=== PATIENT | male | born 1980 | race Caucasian/White ===

== ENCOUNTER 2018-04-24 05:34 | Observation (INO) | payer MEDICARE, MEDICAID ==
[2018-04-24] MEDS ORDERED: Aspirin 81 MG Tab.Chew ONE (05:44)
[2018-04-24] MEDS ORDERED: Aspirin 81 MG Tab.Chew PO ONE (05:55)
[2018-04-24 06:23] LABS: CHLORIDE,CL 106 mmol/L (98-107); SODIUM,NA 141 mmol/L (136-148)
[2018-04-24] MEDS ORDERED: Morphine 2 MG/ML Syringe IVPUSH ONE (06:26)
[2018-04-24] MEDS ORDERED: Morphine 2 MG/ML Syringe ONE (06:27)
--- NOTE | 2018-04-24 07:06 | EDM.PDOC ---
ED HPI GENERAL MEDICAL PROBLEM - General Chief Complaint: Cardiovascular Problem Stated Complaint: HEART BEATING FAST Time Seen by Provider: 04/24/18 07:00 - History of Present Illness INITIAL COMMENTS - FREE TEXT/NARRATIVE: HISTORY AND PHYSICAL: History of present illness: The patient is a 38-year-old male with a history of testicular cancer who is still undergoing observation for that at [facility] and has not had any chemotherapy for 2 years and has a history of need for aortic valve replacement and presents with complaints of waking at 445 this morning with pain to the right side of his sternum palpitation shortness of breath and nausea. Yesterday the patient had a complete normal day without fevers chills or upper respiratory symptoms and had no chest pain. The patient states he has never had this discomfort before. When he arrived to the ED has chest pain was a 1/10 and it is currently as 0/10. He took no medications prior to coming here. He has no leg pain or swelling no current shortness of breath abdominal pain nausea or diaphoresis. The patient does state he gets palpitations intermittently. The patient only follows with at [facility] and has not had an echocardiogram recently nor has he seen a aerial sprayer for his aortic valve murmur according to the mother.. The patient has been eating and drinking normally and has no history of chest discomfort with activity. Review of systems: As per history of present illness and below otherwise all systems reviewed and negative. Past medical history: As per history of present illness and as reviewed below otherwise noncontributory. Surgical history: As per history of present illness and as reviewed below otherwise noncontributory. Social history: No reported history of drug or alcohol abuse. Family history: As per history of present illness and as reviewed below otherwise noncontributory. Physical exam: General: Well-developed well-nourished man who is nontoxic and vital signs have been reviewed by me. Initially the patient was slightly tachycardic and hypertensive which have both resolved without intervention HEENT: Atraumatic, normocephalic, negative for conjunctival pallor or scleral icterus, mucous membranes moist, throat clear, neck supple, nontender, trachea midline. Lungs: Clear to auscultation, breath sounds equal bilaterally, chest nontender. Heart: S1S2, regular rate and rhythm without aortic valve murmur at the left sternal border. Abdomen: Soft, nondistended, nontender. Negative for masses or hepatosplenomegaly. NABS Pelvis: Stable nontender. Genitourinary: Deferred. Rectal: Deferred. Extremities: Atraumatic, negative for cords or calf pain. Neurovascular unremarkable. No pedal edema or leg asymmetry Neuro: Awake, alert, oriented. Cranial nerves II through XII unremarkable. Cerebellum unremarkable. Motor and sensory unremarkable throughout. Exam nonfocal. Diagnostics: EKG 2 CBC CMP INR troponin CTA of the chest Therapeutics: IV O2 monitor aspirin morphine Lovenox nitro paste 0800: Case was discussed with Dr. Hernandez who is agreeable to admit the patient as long as our aerial sprayer Dr. Arshad will be involved. I will call him and discuss the case. 08: Case was discussed with our aerial sprayer Dr. Arshad who will do a formal consult. He feels that the patient can remain here at our hospital and he would like a CTA of the chest to rule out PE. I will order that to be done from the ER and explain all of these conversations with the patient and mother at bedside. I will recontact Dr. Hernandez for admission. 0822: Case was rediscussed with Dr. Hernandez who accepts the patient to observation status on telemetry. He is aware that I will follow-up the CTA of the chest prior to transfer to the floor. 0920:CTA results have been reviewed by me and will be forwarded to the floor. Patient will be transferred to his bed assignment. 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 Chest Pain Score (Numeric/FACES): 1 - Related Data Allergies Allergy/AdvReac Type Severity Reaction Status Date / Time No Known Allergies Allergy Verified 04/24/18 05:46 Home Meds: Home Meds Metoprolol Tartrate 0 mg PO DAILY 04/24/18 [History] Past Medical History Cardiovascular History: Reports: Heart Murmur, Hypertension Oncologic (Cancer) History: Reports: Other (See Below) Other Oncologic History: testicular Social & Family History - Family History Family Medical History: Noncontributory - Tobacco Use Smoking Status *Q: Never Smoker - Recreational Drug Use Recreational Drug Use: No ED ROS GENERAL - Review of Systems Review Of Systems: ROS reveals no pertinent complaints other than HPI. ED EXAM, GENERAL - Physical Exam Exam: See Below (See dictation) Course - Vital Signs Last Recorded V/S: Last Vital Signs Temp 36.8 C 04/24/18 05:43 Pulse 99 04/24/18 08:15 Resp 18 04/24/18 08:15 BP 134/86 04/24/18 08:15 Pulse Ox 97 04/24/18 08:15 - Orders/Labs/Meds Orders: Active Orders 24 hr Category Date Time Status Cardiac Monitoring [RC] . DIRECTED Care 04/24/18 05:55 Active EKG Documentation Completion [RC] STAT Care 04/24/18 05:55 Active EKG Documentation Completion [RC] STAT Care 04/24/18 07:03 Active Notify Provider Consults [RC] ASDIRECTED Care 04/24/18 08:08 Active Consult to Physician [CONS] Stat Cons 04/24/18 08:08 Active Chest 1V Frontal [CR] Stat Exams 04/24/18 05:55 Taken Labs: Laboratory Tests 04/24/18 04/24/18 04/24/18 Range/Units 05:50 05:50 05:50 WBC 5.30 (4.0-11.0) K/uL RBC 5.31 (4.50-5.90) M/uL Hgb 15.7 (13.0-17.0) g/dL Hct 45.6 (38.0-50.0) % MCV 85.9 (80.0-98.0) fL MCH 29.6 (27.0-32.0) pg MCHC 34.4 (31.0-37.0) g/dL RDW Std Deviation 41.7 (28.0-62.0) fl RDW Coeff of Danna 13 (11.0-15.0) % Plt Count 107 L (150-400) K/uL MPV 10.50 (7.40-12.00) fL Neut % (Auto) 68.5 (48.0-80.0) % Lymph % (Auto) 23.0 (16.0-40.0) % [place] % (Auto) 7.4 (0.0-15.0) % Eos % (Auto) 0.9 (0.0-7.0) % Baso % (Auto) 0.2 (0.0-1.5) % Neut # (Auto) 3.6 (1.4-5.7) K/uL Lymph # (Auto) 1.2 (0.6-2.4) K/uL [place] # (Auto) 0.4 (0.0-0.8) K/uL Eos # (Auto) 0.1 (0.0-0.7) K/uL Baso # (Auto) 0.0 (0.0-0.1) K/uL Nucleated RBC % 0.0 /100WBC Nucleated RBCs # 0 K/uL INR 1.01 Sodium 141 (136-148) mmol/L Potassium 3.8 (3.5-5.1) mmol/L Chloride 106 (98-107) mmol/L Carbon Dioxide 23.7 (21.0-32.0) mmol/L BUN 18 (7.0-18.0) mg/dL Creatinine 1.2 (0.8-1.3) mg/dL Est Cr Clr Drug Dosing 82.65 mL/min Estimated GFR (MDRD) > 60.0 ml/min Glucose 115 H (74-106) mg/dL Calcium 8.6 (8.5-10.1) mg/dL Total Bilirubin 0.4 (0.2-1.0) mg/dL AST 23 (15-37) IU/L ALT 27 (14-63) IU/L Alkaline Phosphatase 72 (46-116) U/L Troponin I 0.074 H* (0.000-0.056) ng/mL Total Protein 6.8 (6.4-8.2) g/dL Albumin 4.0 (3.4-5.0) g/dL Globulin 2.8 (2.0-3.5) g/dL Albumin/Globulin Ratio 1.4 (1.3-2.8) 04/24/18 Range/Units 07:18 WBC (4.0-11.0) K/uL RBC (4.50-5.90) M/uL Hgb (13.0-17.0) g/dL Hct (38.0-50.0) % MCV (80.0-98.0) fL MCH (27.0-32.0) pg MCHC (31.0-37.0) g/dL RDW Std Deviation (28.0-62.0) fl RDW Coeff of Danna (11.0-15.0) % Plt Count (150-400) K/uL MPV (7.40-12.00) fL Neut % (Auto) (48.0-80.0) % Lymph % (Auto) (16.0-40.0) % [place] % (Auto) (0.0-15.0) % Eos % (Auto) (0.0-7.0) % Baso % (Auto) (0.0-1.5) % Neut # (Auto) (1.4-5.7) K/uL Lymph # (Auto) (0.6-2.4) K/uL [place] # (Auto) (0.0-0.8) K/uL Eos # (Auto) (0.0-0.7) K/uL Baso # (Auto) (0.0-0.1) K/uL Nucleated RBC % /100WBC Nucleated RBCs # K/uL INR Sodium (136-148) mmol/L Potassium (3.5-5.1) mmol/L Chloride (98-107) mmol/L Carbon Dioxide (21.0-32.0) mmol/L BUN (7.0-18.0) mg/dL Creatinine (0.8-1.3) mg/dL Est Cr Clr Drug Dosing mL/min Estimated GFR (MDRD) ml/min Glucose (74-106) mg/dL Calcium (8.5-10.1) mg/dL Total Bilirubin (0.2-1.0) mg/dL AST (15-37) IU/L ALT (14-63) IU/L Alkaline Phosphatase (46-116) U/L Troponin I 0.076 H* (0.000-0.056) ng/mL Total Protein (6.4-8.2) g/dL Albumin (3.4-5.0) g/dL Globulin (2.0-3.5) g/dL Albumin/Globulin Ratio (1.3-2.8) Meds: Medications Discontinued Medications Generic Name Dose Route Start Last Admin Trade Name Freq PRN Reason Stop Dose Admin Aspirin Confirm 04/24/18 05:44 04/24/18 05:57 Aspirin Administered 04/24/18 05:45 Not Given Dose 324 mg .ROUTE .STK-MED ONE Aspirin 324 mg 04/24/18 05:55 04/24/18 05:57 Aspirin PO 04/24/18 05:56 324 mg ONETIME ONE Administration Enoxaparin Sodium 100 mg 04/24/18 07:53 04/24/18 08:11 Lovenox SUBCUT 04/24/18 07:54 100 mg ONETIME ONE Administration Iopamidol 50 ml 04/24/18 08:30 04/24/18 08:34 Isovue Multipack-370 (76%) IVPUSH 04/24/18 08:31 50 ml ONETIME STA Administration Morphine Sulfate 2 mg 04/24/18 06:26 04/24/18 06:30 Morphine IVPUSH 04/24/18 06:27 2 mg ONETIME ONE Administration Morphine Sulfate Confirm 04/24/18 06:27 04/24/18 06:46 Morphine Administered 04/24/18 06:28 Not Given Dose 2 mg .ROUTE .STK-MED ONE Nitroglycerin 0.5 gm 04/24/18 07:53 04/24/18 08:11 Nitro-Bid 2% TOP 04/24/18 07:54 0.5 gm ONETIME ONE Administration Departure - Departure Time of Disposition: 09:21 Disposition: Refer to Observation Condition: Good Clinical Impression: Atypical chest pain, Elevated troponin - My Orders Last 24 Hours: My Active Orders 04/24/18 07:03 EKG Documentation Completion [RC] STAT 04/24/18 08:08 Notify Provider Consults [RC] ASDIRECTED Consult to Physician [CONS] Stat - Assessment/Plan Last 24 Hours: My Active Orders 04/24/18 07:03 EKG Documentation Completion [RC] STAT 04/24/18 08:08 Notify Provider Consults [RC] ASDIRECTED Consult to Physician [CONS] Stat
[2018-04-24] MEDS ORDERED: Nitroglycerin 2% Oint 1 GM UD Packet TOP ONE (07:53)
[2018-04-24] MEDS ORDERED: Enoxaparin 100 MG/1 ML Syringe SUBCUT ONE ×2 (07:53→20:44)
[2018-04-24] MEDS ORDERED: Iopamidol 755 MG/ML 500 ML Multipack Bottle IVPUSH STA (08:30)
--- NOTE | 2018-04-24 09:19 | CT ---
EXAMINATION: CTA chest HISTORY: Testicular cancer, right chest pain COMPARISON: 01/15/2018 TECHNIQUE: Axial CT images obtained through the chest following the administration of unspecified Iso addi-370 in the right antecubital fossa. Coronal and sagittal reconstructions obtained. FINDINGS: Trace bilateral pleural effusions. Possible patchy infiltrate within the lung bases, left g reater than right, however obscured secondary to motion artifact. Also possible. Slight interlobular septal thickening noted within the lung bases. No pneumothorax. The heart is normal in size without a pericardial effusion. The thoracic aorta is normal in caliber. Bovine arch configuration. The main p ulmonary arteries are patent. There is suboptimal opacification of the pulmonary arteries within the lung bases. No mediastinal or hilar lymphadenopathy. Left-sided phyllis catheter noted. No suspicious osseous abnormalities identified. IMPRESSION: 1. The main pulmonary arteries are patent however there is suboptimal evaluation of the segmental pul monary arteries due to motion and poor bolus timing. 2. Trace bilateral pleural effusions. 3. Possible mild infiltrate within the lung bases, left greater than right, however obscured secondar y to motion artifact. 4. Possible interlobular septal thickening within the lung bases, correlate for edema.
--- NOTE | 2018-04-24 10:56 | PCM.HP ---
H&P History of Present Illness - General Date of Service: 04/24/18 Admit Problem/Dx: Admission Diagnosis/Problem Admission Diagnosis/Problem Atypical chest pain - History of Present Illness Initial Comments - Free Text/Narative: 38 yo male who presents to the ED with complaints of palpitations and shortness of breath. It awoke him from sleeping this morning and lasted five minutes. He had some right upper chest pain associated with it. For the past month he reports getting palpitations about once a week usually during exertion like walking his dog. He states a history of murmer and he was told he needed to have his aortic valve replaced but this was deferred during treatment of his testicular cancer. His last chemotherapy was three years ago. Chest Pain Score (Numeric/FACES): 1 - Related Data Allergies/Adverse Reactions: Allergies Allergy/AdvReac Type Severity Reaction Status Date / Time No Known Allergies Allergy Verified 04/24/18 05:46 Home Medications: Home Meds Furosemide [Lasix] 20 mg PO DAILY #30 tablet 04/26/18 [Rx] Metoprolol Succinate [Toprol XL] 75 mg PO DAILY tab.er 04/26/18 [Rx] Past Medical History Cardiovascular History: Reports: Heart Murmur, Hypertension Musculoskeletal History: Reports: Fracture Oncologic (Cancer) History: Reports: Other (See Below) Other Oncologic History: testicular - Past Surgical History HEENT Surgical History: Reports: Tonsillectomy Musculoskeletal Surgical History: Reports: Other (See Below) Other Musculoskeletal Surgeries/Procedures:: surgery to right wrist, pins in place Social & Family History - Family History Family Medical History: Noncontributory - Tobacco Use Smoking Status *Q: Never Smoker - Caffeine Use Caffeine Use: Reports: None - Recreational Drug Use Recreational Drug Use: No H&P Review of Systems - Review of Systems: Review Of Systems: See Below Exam - Exam Exam: See Below - Vital Signs Vital Signs: Last Vital Signs Temp 36.5 C 04/24/18 09:41 Pulse 100 04/24/18 09:41 Resp 19 04/24/18 09:41 BP 143/89 H 04/24/18 09:41 Pulse Ox 95 04/24/18 09:41 Weight: 96.6 kg - Exam General: Alert, Oriented HEENT: Conjunctiva Clear Neck: Supple, Trachea Midline Lungs: Clear to Auscultation, Normal Respiratory Effort Cardiovascular: Regular Rate, Regular Rhythm, Systolic Murmur GI/Abdominal Exam: Soft, Non-Tender Extremities: Normal Range of Motion, Non-Tender, No Pedal Edema Skin: Warm, Dry, Intact - Patient Data Lab Results Last 24 hrs: Laboratory Results - last 24 hr 04/24/18 04/24/18 04/24/18 Range/Units 05:50 05:50 05:50 WBC 5.30 (4.0-11.0) K/uL RBC 5.31 (4.50-5.90) M/uL Hgb 15.7 (13.0-17.0) g/dL Hct 45.6 (38.0-50.0) % MCV 85.9 (80.0-98.0) fL MCH 29.6 (27.0-32.0) pg MCHC 34.4 (31.0-37.0) g/dL RDW Std Deviation 41.7 (28.0-62.0) fl RDW Coeff of Danna 13 (11.0-15.0) % Plt Count 107 L (150-400) K/uL MPV 10.50 (7.40-12.00) fL Neut % (Auto) 68.5 (48.0-80.0) % Lymph % (Auto) 23.0 (16.0-40.0) % [place] % (Auto) 7.4 (0.0-15.0) % Eos % (Auto) 0.9 (0.0-7.0) % Baso % (Auto) 0.2 (0.0-1.5) % Neut # (Auto) 3.6 (1.4-5.7) K/uL Lymph # (Auto) 1.2 (0.6-2.4) K/uL [place] # (Auto) 0.4 (0.0-0.8) K/uL Eos # (Auto) 0.1 (0.0-0.7) K/uL Baso # (Auto) 0.0 (0.0-0.1) K/uL Nucleated RBC % 0.0 /100WBC Nucleated RBCs # 0 K/uL INR 1.01 Sodium 141 (136-148) mmol/L Potassium 3.8 (3.5-5.1) mmol/L Chloride 106 (98-107) mmol/L Carbon Dioxide 23.7 (21.0-32.0) mmol/L BUN 18 (7.0-18.0) mg/dL Creatinine 1.2 (0.8-1.3) mg/dL Est Cr Clr Drug Dosing 82.65 mL/min Estimated GFR (MDRD) > 60.0 ml/min Glucose 115 H (74-106) mg/dL Calcium 8.6 (8.5-10.1) mg/dL Total Bilirubin 0.4 (0.2-1.0) mg/dL AST 23 (15-37) IU/L ALT 27 (14-63) IU/L Alkaline Phosphatase 72 (46-116) U/L Troponin I 0.074 H* (0.000-0.056) ng/mL Total Protein 6.8 (6.4-8.2) g/dL Albumin 4.0 (3.4-5.0) g/dL Globulin 2.8 (2.0-3.5) g/dL Albumin/Globulin Ratio 1.4 (1.3-2.8) 04/24/18 Range/Units 07:18 WBC (4.0-11.0) K/uL RBC (4.50-5.90) M/uL Hgb (13.0-17.0) g/dL Hct (38.0-50.0) % MCV (80.0-98.0) fL MCH (27.0-32.0) pg MCHC (31.0-37.0) g/dL RDW Std Deviation (28.0-62.0) fl RDW Coeff of Danna (11.0-15.0) % Plt Count (150-400) K/uL MPV (7.40-12.00) fL Neut % (Auto) (48.0-80.0) % Lymph % (Auto) (16.0-40.0) % [place] % (Auto) (0.0-15.0) % Eos % (Auto) (0.0-7.0) % Baso % (Auto) (0.0-1.5) % Neut # (Auto) (1.4-5.7) K/uL Lymph # (Auto) (0.6-2.4) K/uL [place] # (Auto) (0.0-0.8) K/uL Eos # (Auto) (0.0-0.7) K/uL Baso # (Auto) (0.0-0.1) K/uL Nucleated RBC % /100WBC Nucleated RBCs # K/uL INR Sodium (136-148) mmol/L Potassium (3.5-5.1) mmol/L Chloride (98-107) mmol/L Carbon Dioxide (21.0-32.0) mmol/L BUN (7.0-18.0) mg/dL Creatinine (0.8-1.3) mg/dL Est Cr Clr Drug Dosing mL/min Estimated GFR (MDRD) ml/min Glucose (74-106) mg/dL Calcium (8.5-10.1) mg/dL Total Bilirubin (0.2-1.0) mg/dL AST (15-37) IU/L ALT (14-63) IU/L Alkaline Phosphatase (46-116) U/L Troponin I 0.076 H* (0.000-0.056) ng/mL Total Protein (6.4-8.2) g/dL Albumin (3.4-5.0) g/dL Globulin (2.0-3.5) g/dL Albumin/Globulin Ratio (1.3-2.8) Result Diagrams: 04/25/18 05:30 04/25/18 05:30 Problem List Initiated/Reviewed/Updated: Yes Orders Last 24hrs: Active Orders 24 hr Category Date Time Status Patient Status [ADT] Stat ADT 04/24/18 08:30 Active Cardiac Monitoring [RC] . DIRECTED Care 04/24/18 05:55 Active Cardiac Monitoring [RC] CONTINUOUS Care 04/24/18 10:50 Ordered EKG Documentation Completion [RC] STAT Care 04/24/18 05:55 Active EKG Documentation Completion [RC] STAT Care 04/24/18 07:03 Active Notify Provider Consults [RC] ASDIRECTED Care 04/24/18 08:08 Active Oxygen Therapy [RC] PRN Care 04/24/18 10:50 Ordered Up ad Kayla [RC] ASDIRECTED Care 04/24/18 10:50 Ordered VTE/DVT Education [RC] PER UNIT ROUTINE Care 04/24/18 10:50 Ordered Vital Signs [RC] Q4H Care 04/24/18 10:50 Ordered Consult to Physician [CONS] Stat Cons 04/24/18 08:08 Active Regular Diet [DIET] Diet 04/24/18 Breakfast Ordered Chest 1V Frontal [CR] Stat Exams 04/24/18 05:55 Taken Echo 2D wo Cont [US] Routine Exams 04/24/18 10:10 Ordered BASIC METABOLIC PANEL,BMP [CHEM] AM Lab 04/25/18 05:11 Ordered CBC WITH AUTO DIFF [HEME] AM Lab 04/25/18 05:11 Ordered TROPONIN I [CHEM] Q6H Lab 04/24/18 13:00 Ordered TROPONIN I [CHEM] Q6H Lab 04/24/18 19:00 Ordered Sequential Compression Device [OM.PC] Per Unit Routine Oth 04/24/18 10:50 Ordered Resuscitation Status Routine Resus Stat 04/24/18 10:50 Ordered Assessment/Plan Comment:: 38 yo male who presented with palpitations and shortness of breath which resolved. He was found to have mildly elevated troponin. His CT angio was negative for PE. We will observe him overnight on telemetry and trend his cardiac enzymes. We will also obtain an echocardiogram.
--- NOTE | 2018-04-24 16:54 | CR ---
EXAM DATE: 04/24/18 PATIENT'S AGE: 38 Patient: MARLO TOLBERT Facility: [place], [place] Site . Site : 1980 Study: XRay Chest [id number]/10/2018 6:20:17 AM Ordering Physician: Clement Cortes Final Report: HISTORY: Chest pain. FINDINGS: AP portable chest radiographs compared with 03 May 2014. Left-sided Port-A- Cath in place with tip in the SVC. Cardiac silhouette is acceptable size for technique. No cephalization. The small amount of left basilar density is present. No lobar consolidation or pleural effusion is seen. IMPRESSION: Left basilar atelectatic lung or minimal infiltrate. Dictated by Marce Alcala MD @ 04/24/2018 6:47:17 AM Dictated by: Marce Alcala MD @ 04/24/2018 06:47:21 (Electronic Signature) Report Signed by Proxy. [facility]
[2018-04-25 05:58] LABS: CHLORIDE,CL 105 mmol/L (98-107); SODIUM,NA 139 mmol/L (136-148)
[2018-04-25] MEDS ORDERED: Furosemide 40 MG/4 ML VIAL IVPUSH ONE (07:51)
--- NOTE | 2018-04-25 10:11 | CONS ---
DATE OF CONSULTATION: 04/24/2018 DATE OF : 1980 PRIMARY CARE PHYSICIAN: ELVIS Shepherd REASON FOR CONSULTATION: Troponin elevation, palpitation, and shortness of breath. HISTORY OF PRESENT ILLNESS: This is a 38-year-old male who has a history of recurrent seminoma, status post chemotherapy x2 with bone metastasis; history of hypertension; and possibly history of learning disabilities. He presented to the hospital at this time due to definitely shortness of breath. However, the history was taken from the patient, and the reliability seemed to be not 100% due to the learning disability. According to the patient, he has been doing well until the morning of admission. He was waking up, going to the bathroom, started being short of breath. No coughing. No fever. He also felt slight chest pain on the right upper chest. It was lasting for 1 minute. It was very mild. He rated at 1 from 10. No radiation. It was sharp pain. No sweating. No nausea. No dizziness. He denied palpitation to me; however, he reported palpitation to the other two providers. Otherwise, he denied leg swelling, orthopnea, or PND. He was told that he has some problem with his heart valve in the past when he was in [facility] for his cancer treatment, however, it was unclear what it was. He denied a similar episode of shortness of breath like this in the past. His physical activity seemed to be okay. 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 He does not do exercise. He is taking metoprolol at home. PAST MEDICAL HISTORY: Includes recurrent seminoma, status post chemotherapy; and history of hypertension. ALLERGIES: No known drug allergies. REVIEW OF SYSTEMS: A 12-point has been negative except indicated in the HPI. SOCIAL HISTORY: No smoking, drug use or alchol consumption. PHYSICAL EXAMINATION: HEART: Normal S1 and S2. Regular rate and rhythm. No S3. LUNGS: Clear. No wheezing. No crackles. ABDOMEN: Soft, nontender. Bowel sounds are present. No hepatosplenomegaly. EXTREMITIES: Legs have no edema. LABORATORY INVESTIGATIONS: CBC showed WBC 5, hematocrit of 45, hemoglobin 15, and platelet 107. INR is 1.01. D-dimer is 0.27. Sodium 141, potassium is 3.8, chloride 106, bicarb 23, BUN 18, creatinine 1.2, glucose 116. Initial troponin 0.076. BNP 1055. Chest x-ray mild primary vascular rejection. CT of the chest with contrast, negative PE; however, subsegmental or small PE cannot be ruled out due to poor quality of the images. The echocardiogram in August 2015 shows LV ejection fraction of 70% to 75% with moderate proximal septal hypertrophy; mild LVOT obstruction, pseudonormal; LV diastolic dysfunction; and trace MR. The current echocardiogram in April 2018: LVEF of 70% to 75, mild septal hypertrophy, severe left ventricular outflow tract obstruction, moderately dilated left atrium, diastolic seemed to be dysfunctioned due to left atrial enlargement. ECG: Sinus rhythm, heart rate of 96, ND interval 198, QRS duration is 103, and QTc interval 457. ASSESSMENT AND PLAN: This is a 38-year-old male with history of recurrent seminoma, status post chemotherapy and bone metastasis with shortness of breath; possible palpitation with troponin elevation and elevated BNP. Possibly, the symptoms of shortness of breath, palpitation, and elevation of troponin seem to be unclear. It could be from mild diastolic dysfunction/mild diastolic heart failure. Given history of recurrent cancer, we should rule out pulmonary embolism. The CT angiogram was negative for large pulmonary embolism, however, subsegmental small pulmonary embolism cannot be ruled out. I would recommend to do a V/Q scan and continue the Lovenox for now and also give him one dose of Lasix. For the left ventricular outflow tract obstruction, the beta-elaine needs to be resumed. Echocardiogram may need to be repeated in the other hospital to assess left ventricular outflow tract pressure gradient. The troponin elevation is still unclear, but less likely could be due to acute coronary syndrome. VIKKI / VIELKA /[id number]
--- NOTE | 2018-04-25 14:53 | CR ---
EXAMINATION: Two-view chest (PA and Lateral views). HISTORY: Shortness of breath. Comparison the day prior FINDINGS: The trachea is midline. The cardiomediastinal silhouette is within normal limits. No pulmonary infilt rates, effusions or pneumothorax. Mild 1.7 cm nodular area projecting over the lung bases on the late ral film not noted on the CT on the day prior and likely artifactual. Left-sided portacatheter. Osseous structures appear unremarkable. IMPRESSION: No acute cardiopulmonary process.
--- NOTE | 2018-04-25 16:31 | NM ---
EXAMINATION: Ventilation/perfusion study HISTORY: Rule out PE COMPARISON: Chest radiograph from the same day TECHNIQUE: Anterior, posterior, and oblique planar imaging obtained of the chest following the admini stration of 3.7 mCi technetium 99 M labeled MAA and 45.1 mCi of technetium 99m labeled DTPA. FINDINGS: Perfusion and ventilation the lungs appear normal bilaterally. No ventilation/perfusion mis match. No segmental perfusion defect. IMPRESSION: Low probability for a pulmonary embolism.
--- NOTE | 2018-04-25 16:38 | ECHO ---
The echocardiogram report can be seen in this patient's EMR (Electronic Medical Record) in the Reports section. The echocardiogram report has also been scanned into PACS and can be seen there. [facility]
[2018-04-25] MEDS: Metoprolol Succinate 25 MG Tab.ER PO SCH (17:43)
--- NOTE | 2018-04-25 22:47 | PCM.PN ---
- General Info Date of Service: 04/25/18 - Review of Systems Systems Review Comment:: no palpitations or shortness of breath - Patient Data Vitals - Most Recent: Last Vital Signs Temp 36.2 C 04/25/18 19:44 Pulse 62 04/25/18 19:44 Resp 18 04/25/18 19:44 BP 120/80 04/25/18 19:44 Pulse Ox 97 04/25/18 19:44 Weight - Most Recent: 96.6 kg I&O - Last 24 Hours: Intake & Output 04/25/18 04/25/18 04/25/18 06:59 14:59 22:59 Intake Total 700 950 Output Total 0 770 Balance 700 180 Lab Results Last 24 Hours: Laboratory Results - last 24 hr 04/25/18 04/25/18 Range/Units 05:30 05:30 WBC 4.15 (4.0-11.0) K/uL RBC 5.25 (4.50-5.90) M/uL Hgb 15.5 (13.0-17.0) g/dL Hct 44.5 (38.0-50.0) % MCV 84.8 (80.0-98.0) fL MCH 29.5 (27.0-32.0) pg MCHC 34.8 (31.0-37.0) g/dL RDW Std Deviation 40.7 (28.0-62.0) fl RDW Coeff of Danna 13 (11.0-15.0) % Plt Count 107 L (150-400) K/uL MPV 10.10 (7.40-12.00) fL Neut % (Auto) 66.8 (48.0-80.0) % Lymph % (Auto) 23.6 (16.0-40.0) % [place] % (Auto) 8.7 (0.0-15.0) % Eos % (Auto) 0.7 (0.0-7.0) % Baso % (Auto) 0.2 (0.0-1.5) % Neut # (Auto) 2.8 (1.4-5.7) K/uL Lymph # (Auto) 1.0 (0.6-2.4) K/uL [place] # (Auto) 0.4 (0.0-0.8) K/uL Eos # (Auto) 0.0 (0.0-0.7) K/uL Baso # (Auto) 0.0 (0.0-0.1) K/uL Nucleated RBC % 0.0 /100WBC Nucleated RBCs # 0 K/uL Sodium 139 (136-148) mmol/L Potassium 3.8 (3.5-5.1) mmol/L Chloride 105 (98-107) mmol/L Carbon Dioxide 23.1 (21.0-32.0) mmol/L BUN 10 (7.0-18.0) mg/dL Creatinine 1.0 (0.8-1.3) mg/dL Est Cr Clr Drug Dosing 99.18 mL/min Estimated GFR (MDRD) > 60.0 ml/min Glucose 111 H (74-106) mg/dL Calcium 8.6 (8.5-10.1) mg/dL Med Orders - Current: Current Medications Furosemide (Lasix) 20 mg PO DAILY [facility] Metoprolol Succinate (Toprol Xl) 75 mg PO DAILY [facility] Last Admin: 04/25/18 17:43 Dose: 75 mg Discontinued Medications Aspirin (Aspirin) Confirm Administered Dose 324 mg .ROUTE .STK-MED ONE Stop: 04/24/18 05:45 Last Admin: 04/24/18 05:57 Dose: Not Given Aspirin (Aspirin) 324 mg PO ONETIME ONE Stop: 04/24/18 05:56 Last Admin: 04/24/18 05:57 Dose: 324 mg Enoxaparin Sodium (Lovenox) 100 mg SUBCUT ONETIME ONE Stop: 04/24/18 07:54 Last Admin: 04/24/18 08:11 Dose: 100 mg Enoxaparin Sodium (Lovenox) 100 mg SUBCUT ONETIME ONE Stop: 04/24/18 20:45 Last Admin: 04/24/18 21:36 Dose: 100 mg Furosemide (Lasix) 40 mg IVPUSH NOW ONE Stop: 04/25/18 07:52 Last Admin: 04/25/18 08:46 Dose: 40 mg Iopamidol (Isovue Multipack-370 (76%)) 50 ml IVPUSH ONETIME STA Stop: 04/24/18 08:31 Last Admin: 04/24/18 08:34 Dose: 50 ml Morphine Sulfate (Morphine) 2 mg IVPUSH ONETIME ONE Stop: 04/24/18 06:27 Last Admin: 04/24/18 06:30 Dose: 2 mg Morphine Sulfate (Morphine) Confirm Administered Dose 2 mg .ROUTE .STK-MED ONE Stop: 04/24/18 06:28 Last Admin: 04/24/18 06:46 Dose: Not Given Nitroglycerin (Nitro-Bid 2%) 0.5 gm TOP ONETIME ONE Stop: 04/24/18 07:54 Last Admin: 04/24/18 08:11 Dose: 0.5 gm - Exam General: Alert, Oriented Neck: Supple Lungs: Clear to Auscultation, Normal Respiratory Effort Cardiovascular: Regular Rate, Regular Rhythm GI/Abdominal Exam: Soft, Non-Tender Extremities: Non-Tender, No Pedal Edema - Problem List Review Problem List Initiated/Reviewed/Updated: Yes - Plan Plan:: 38 yo male who presented with palpitations and shortness of breath which resolved. He was found to have mildly elevated troponin. His CT angio was negative for PE. Dr. Randolph was consulted and recommended restarting his beta elaine and starting lasix.
[2018-04-26 07:40] VITALS: BP 120/81
--- NOTE | 2018-04-26 07:48 | PCM.PN ---
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 Subjective Update: He felt well no SOB palpitation no chest pain. - Review of Systems General: Reports: No Symptoms HEENT: Reports: No Symptoms Pulmonary: Reports: No Symptoms Cardiovascular: Reports: No Symptoms Gastrointestinal: Reports: No Symptoms Genitourinary: Reports: No Symptoms Skin: Reports: No Symptoms - Patient Data Vitals - Most Recent: Last Vital Signs Temp 36.0 C 04/26/18 07:35 Pulse 63 04/26/18 07:35 Resp 16 04/26/18 07:35 BP 120/81 04/26/18 07:35 Pulse Ox 98 04/26/18 07:35 Weight - Most Recent: 96.6 kg I&O - Last 24 Hours: Intake & Output 04/25/18 04/26/18 04/26/18 22:59 06:59 14:59 Intake Total 950 850 Output Total 770 750 Balance 180 100 Med Orders - Current: Current Medications Furosemide (Lasix) 20 mg PO DAILY [facility] Metoprolol Succinate (Toprol Xl) 75 mg PO DAILY [facility] Last Admin: 04/25/18 17:43 Dose: 75 mg Discontinued Medications Aspirin (Aspirin) Confirm Administered Dose 324 mg .ROUTE .STK-MED ONE Stop: 04/24/18 05:45 Last Admin: 04/24/18 05:57 Dose: Not Given Aspirin (Aspirin) 324 mg PO ONETIME ONE Stop: 04/24/18 05:56 Last Admin: 04/24/18 05:57 Dose: 324 mg Enoxaparin Sodium (Lovenox) 100 mg SUBCUT ONETIME ONE Stop: 04/24/18 07:54 Last Admin: 04/24/18 08:11 Dose: 100 mg Enoxaparin Sodium (Lovenox) 100 mg SUBCUT ONETIME ONE Stop: 04/24/18 20:45 Last Admin: 04/24/18 21:36 Dose: 100 mg Furosemide (Lasix) 40 mg IVPUSH NOW ONE Stop: 04/25/18 07:52 Last Admin: 04/25/18 08:46 Dose: 40 mg Iopamidol (Isovue Multipack-370 (76%)) 50 ml IVPUSH ONETIME STA Stop: 04/24/18 08:31 Last Admin: 04/24/18 08:34 Dose: 50 ml Morphine Sulfate (Morphine) 2 mg IVPUSH ONETIME ONE Stop: 04/24/18 06:27 Last Admin: 04/24/18 06:30 Dose: 2 mg Morphine Sulfate (Morphine) Confirm Administered Dose 2 mg .ROUTE .STK-MED ONE Stop: 04/24/18 06:28 Last Admin: 04/24/18 06:46 Dose: Not Given Nitroglycerin (Nitro-Bid 2%) 0.5 gm TOP ONETIME ONE Stop: 04/24/18 07:54 Last Admin: 04/24/18 08:11 Dose: 0.5 gm - Exam General: Alert, Oriented HEENT: Pupils Equal, Pupils Reactive Neck: JVD Lungs: Clear to Auscultation Cardiovascular: Regular Rate, Regular Rhythm GI/Abdominal Exam: Normal Bowel Sounds Extremities: No Pedal Edema EKG INTERPRETATION Rhythm: NSR - Problem List Review Problem List Initiated/Reviewed/Updated: Yes - My Orders Last 24 Hours: My Active Orders 04/25/18 17:30 Metoprolol Succinate [Toprol XL] 75 mg PO DAILY 04/26/18 09:00 Furosemide [Lasix] 20 mg PO DAILY - Plan Plan:: 38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 1. CVS: it was unclear what the etiology of his symptoms was, but CTA/ VQ scan were neg and low prob for PE, the trop elevation could be arrhythmia related or diastolic HF. BNP elevated, with mild pulm vas congestion. Echo showed LVOT obstruction, however the echo in our hospital was not in good quality, I will repeat it in the other hospital, recommend to restart metoprolol 75 daily along with low dose of lasix. He now felt well, no SOB with activities, he probably has hypertrophic cardiomyopathy. He denied syncope so far. I will do zio pacth for 30 day. - metoprolol 75 daily, lasix 20 daily - zio patch for 30d
[2018-04-26] MEDS ORDERED: Furosemide 20 MG Tab PO SCH (09:00)
[2018-04-26] MEDS: Metoprolol Succinate 25 MG Tab.ER PO SCH (09:38)
--- NOTE | 2018-04-26 10:17 | PCM.DCSUM1 ---
Discharge Summary - Discharge Data Discharge Date: 04/26/18 Discharge Disposition: Home, Self-Care 01 Condition: Good - Patient Summary/Data Consults: Consultations 04/24/18 08:08 Consult to Physician [CONS] Stat Hospital Course: 38 yo male who presented to the ED with complaints of palpitations and shortness of breath that was episodic and short lived. He has a history of mild mental retardation, murmer, and testicular cancer in remission. On admission he was noted to have a mildly elevated troponin of 0.076. HE had a negative CT chest angio, and his Echocardiogram showed LVOT. Dr. Randolph was consulted and recommended starting lasix 20mg daily and to continue metoprolol 75mg daily that he was already taking at home. Patient was discharge home to have follow up with Dr. Randolph who is also arranging zio patch. - Discharge Plan Prescriptions/Med Rec: Furosemide [Lasix] 20 mg PO DAILY #30 tablet Home Medications: Home Meds Furosemide [Lasix] 20 mg PO DAILY #30 tablet 04/26/18 [Rx] Metoprolol Succinate [Toprol XL] 75 mg PO DAILY tab.er 04/26/18 [Rx] Patient Handouts: Nonspecific Chest Pain, [id number] Referrals: Roro Marquez MD [Physician] - Indira Mota NP [Primary Care Provider] - - Patient Data Vitals - Most Recent: Last Vital Signs Temp 36.0 C 04/26/18 07:35 Pulse 56 L 04/26/18 09:38 Resp 16 04/26/18 07:35 BP 120/81 04/26/18 09:38 Pulse Ox 98 04/26/18 07:35 Weight - Most Recent: 96.6 kg I&O - Last 24 hours: Intake & Output 04/25/18 04/26/18 04/26/18 22:59 06:59 14:59 Intake Total 950 850 Output Total 770 750 Balance 180 100 Med Orders - Current: Current Medications Furosemide (Lasix) 20 mg PO DAILY [facility] Last Admin: 04/26/18 09:38 Dose: 20 mg Metoprolol Succinate (Toprol Xl) 75 mg PO DAILY [facility] Last Admin: 04/26/18 09:38 Dose: 75 mg Discontinued Medications Aspirin (Aspirin) Confirm Administered Dose 324 mg .ROUTE .STK-MED ONE Stop: 04/24/18 05:45 Last Admin: 04/24/18 05:57 Dose: Not Given Aspirin (Aspirin) 324 mg PO ONETIME ONE Stop: 04/24/18 05:56 Last Admin: 04/24/18 05:57 Dose: 324 mg Enoxaparin Sodium (Lovenox) 100 mg SUBCUT ONETIME ONE Stop: 04/24/18 07:54 Last Admin: 04/24/18 08:11 Dose: 100 mg Enoxaparin Sodium (Lovenox) 100 mg SUBCUT ONETIME ONE Stop: 04/24/18 20:45 Last Admin: 04/24/18 21:36 Dose: 100 mg Furosemide (Lasix) 40 mg IVPUSH NOW ONE Stop: 04/25/18 07:52 Last Admin: 04/25/18 08:46 Dose: 40 mg Iopamidol (Isovue Multipack-370 (76%)) 50 ml IVPUSH ONETIME STA Stop: 04/24/18 08:31 Last Admin: 04/24/18 08:34 Dose: 50 ml Morphine Sulfate (Morphine) 2 mg IVPUSH ONETIME ONE Stop: 04/24/18 06:27 Last Admin: 04/24/18 06:30 Dose: 2 mg Morphine Sulfate (Morphine) Confirm Administered Dose 2 mg .ROUTE .STK-MED ONE Stop: 04/24/18 06:28 Last Admin: 04/24/18 06:46 Dose: Not Given Nitroglycerin (Nitro-Bid 2%) 0.5 gm TOP ONETIME ONE Stop: 04/24/18 07:54 Last Admin: 04/24/18 08:11 Dose: 0.5 gm
== END 2018-04-26 10:45 | disposition home or self-care (01) ==
LOC: MW.ED 05:34 → MW.ICU 08:30 → MW.MS 20:01
PROVIDERS: ADMIT Internal Medicine; ATTEND Internal Medicine
DX: R07.89 Other chest pain (principal); R00.2 Palpitations; R06.02 Shortness of breath; R79.89 Other specified abnormal findings of blood chemistry; C62.90 Malignant neoplasm of unspecified testis, unspecified whether descended or undescended; I10 Essential (primary) hypertension; Z79.899 Other long term (current) drug therapy; Z92.21 Personal history of antineoplastic chemotherapy
CPT/HCPCS: 36415; 71045; 71046; 71275; 78582; 80048; 80053; 83880; 84484; 85025; 85379; 85610; 93005; 93306; 96372; 96374; 96375; 99285; A9270; A9540; A9567; G0378; J1650; J1940; J2270; Q9967; 99284

== ENCOUNTER 2019-05-03 17:39 | Emergency (ER) | payer MEDICAID, MEDICARE ==
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
[2019-05-03 18:07] VITALS: BP 153/85
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
[2019-05-03 19:06] LABS: CHLORIDE,CL 107 mmol/L (98-107); SODIUM,NA 140 mmol/L (136-148)
== END 2019-05-03 19:21 | disposition home or self-care (01) ==
LOC: MW.ED 17:39
DX: S29.9XXA Unspecified injury of thorax, initial encounter (principal); I10 Essential (primary) hypertension; V49.59XA Passenger injured in collision with other motor vehicles in traffic accident, initial encounter; Y92.410 Unspecified street and highway as the place of occurrence of the external cause
CPT/HCPCS: 36415; 71101-26-LT; 71101-LT; 80053; 81001; 85025; 93005; 99283; 99284-25

== ENCOUNTER 2021-03-24 13:50 | Emergency (ER) | payer MEDICAID, MEDICARE ==
[2021-03-24] MEDS ORDERED: Sodium Chloride 0.9% 2.5 ML Syringe FLUSH PRN (14:05)
[2021-03-24] MEDS ORDERED: Aspirin 81 MG Tab.Chew PO ONE (14:05)
[2021-03-24] MEDS ORDERED: Sodium Chloride 0.9% 10 ML Syringe FLUSH PRN (14:05)
--- NOTE | 2021-03-24 14:06 | PCM.EKG ---
#1 Interpretation EKG Date: 03/24/21 Time: 13:49 Rhythm: NSR Rate (Beats/Min): 63 ST-T: Normal
[2021-03-24 14:50] LABS: BLOOD UREA NITROGEN,BUN 19 mg/dL (7.0-18.0); CARBON DIOXIDE,CO2 24.1 mmol/L (21.0-32.0); CHLORIDE,CL 104 mmol/L (98-107); GLUCOSE RANDOM 100 mg/dL (74-106); POTASSIUM,K 4.2 mmol/L (3.5-5.1); SODIUM,NA 140 mmol/L (136-148)
--- NOTE | 2021-03-24 14:54 | CR ---
For Patients: As a result of the Century Cures Act, medical imaging exams and procedure reports are released immediately into your electronic medical record. You may view this report before your referring provider. If you have questions, please contact your health care provider. INDICATION: Chest pain TECHNIQUE: Chest 1 views COMPARISON: 12/11/2020 FINDINGS: Cardiovascular and mediastinum: Heart size and vasculature are normal in caliber and appearance. Unchanged port catheter and other electrical device. Lungs and pleural spaces: Lungs are clear. No sign of infiltrate or mass. No sign of pleural effusion. No pneumothorax. Bones and soft tissues: No significant findings. IMPRESSION: No acute findings and no significant changes from the prior exam. Dictated by John Goodson MD @ 03/24/2021 2:53:[address] John Goodson @ Mar 24 2021 2:53PM
--- NOTE | 2021-03-24 15:35 | EDM.PDOC ---
ED HPI GENERAL MEDICAL PROBLEM - General Chief Complaint: Cardiovascular Problem Stated Complaint: CHEST PAIN Time Seen by Provider: 03/24/21 13:53 Source of Information: Reports: Patient History Limitations: Reports: No Limitations - History of Present Illness INITIAL COMMENTS - FREE TEXT/NARRATIVE: HISTORY AND PHYSICAL: History of present illness: Patient is a 41-year-old male who resents emergency room today with concern of a few episodes of short chest pain that occurred approximately an hour and 1/2/2 hours prior to arrival to the emergency room. Patient states that he was at the local grocery store when he felt sharp sudden left-sided chest pain that resolved after a few seconds. Patient states that this pain was nonexertional and resolved on its own. Patient states currently he is symptom-free and has no complaints at this time. 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 Patient states that it was recommended to him by cardiology to have an aortic valve replacement but he "did not want to do this ". He states because of that, they put in a defibrillator. Patient states that he is unsure if he felt any shocks from the defibrillator when he was having the episodes of chest pain. Patient states that he is cancer free and has been since February and is not on any regimens for cancer. Patient denies any other associative symptoms. Patient denies fever, chills, chest pain, shortness of breath, or cough. Denies headache, neck stiff ness, change in vision, syncope, or near syncope. Denies nausea, vomiting, abdominal pain, diarrhea, constipation, or dysuria. Has not noted any blood in urine or stool. Patient has been eating and drinking appropriately. Review of systems: As per history of present illness and below otherwise all systems reviewed and negative. Past medical history: As per history of present illness and as reviewed below otherwise noncontributory. Surgical history: As per history of present illness and as reviewed below otherwise noncontributory. Social history: See social history for further information Family history: As per history of present illness and as reviewed below otherwise noncontributory. Physical exam: General: Patient is alert, oriented, and in no acute distress. Patient sitting comfortably on exam table. Vitals stable and reviewed by me. HEENT: Atraumatic, normocephalic, pupils equal and reactive bilaterally, negative for conjunctival pallor or scleral icterus, mucous membranes moist, TMs normal bilaterally, throat clear, neck supple, nontender, trachea midline. No drooling or trismus noted. No meningeal signs. No hot potato voice noted. Lungs: Clear to auscultation, breath sounds equal bilaterally, chest nontender. Heart: S1S2, regular rate and rhythm without overt murmur Abdomen: Soft, nondistended, nontender. Negative for masses or hepatosplenomegaly. Negative for costovertebral tenderness. Pelvis: Stable nontender. Genitourinary: Deferred. Rectal: Deferred. Skin: Intact, warm, dry. No lesions or rashes noted. Extremities: Atraumatic, negative for cords or calf pain. Neurovascular unremarkable. Neuro: Awake, alert, oriented. Cranial nerves II through XII unremarkable. Cerebellum unremarkable. Motor and sensory unremarkable throughout. Exam nonfocal. 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 Upon arrival to the ED, patient is vitally stable and well-appearing and does not express any chest pain at this time. Will perform cardiac evaluation as well as interrogate patient's ICD device as he is unsure if this had shocked him or not during the episode. See Dr. Sullivan's dictation for specific EKG interpretation. However, normal sinus rhythm without signs of ischemic changes, no STEMI noted. Heart score 2, low risk. Lab work is unremarkable. Troponin is negative. Chest x-ray shows no acute cardiopulmonary findings. Repeat troponin negative. Dr. Arshad, cardiology, is at bedside interrogating patient's the device and states that this has not delivered any shocks or detected any abnormal rhythms. Repeat EKG shows no acute changes,. Upon reevaluation of patient, he has not had any returning symptoms and remains vitally stable and well-appearing on exam. Strict return precautions thoroughly discussed with patient. Discussed importance for follow-up with a primary care provider and his apprentice lineman third step. Voices understanding and is agreeable to plan of care. Denies any further questions or concerns at this time. Diagnostics: CBC, CMP, UA, chest x-ray, troponin, device interrogation of defibrillator, magnesium Therapeutics: ASA Prescription: None Impression: Atypical chest pain, resolved Plan: 1. You can alternate ibuprofen and Tylenol as directed for pain and discomfort. 2. Follow-up with your primary care provider and apprentice lineman third step as discussed. Return to the ED as needed and as discussed. Definitive disposition and diagnosis as appropriate pending reevaluation and review of above. - Related Data Allergies Allergy/AdvReac Type Severity Reaction Status Date / Time No Known Allergies Allergy Verified 03/24/21 13:59 Home Meds: Home Meds Metoprolol Succinate [Toprol XL] 75 mg PO DAILY tab.er 04/26/18 [Rx] Aspirin 81 mg PO DAILY 03/24/21 [History] Past Medical History HEENT History: Reports: None Cardiovascular History: Reports: Heart Murmur, Hypertension Genitourinary History: Reports: None Musculoskeletal History: Reports: Fracture Other Musculoskeletal History: R wrist Oncologic (Cancer) History: Reports: Other (See Below) Other Oncologic History: testicular - Infectious Disease History Infectious Disease History: Reports: Chicken Pox, Measles - Past Surgical History HEENT Surgical History: Reports: Tonsillectomy Cardiovascular Surgical History: Reports: Other (See Below) Other Cardiovascular Surgeries/Procedures: defibrilator in place Male Surgical History: Reports: Other (See Below) Other Male Surgeries/Procedures: L testicle removed for testicular ca Musculoskeletal Surgical History: Reports: Other (See Below) Other Musculoskeletal Surgeries/Procedures:: surgery to right wrist, pins in place Oncologic Surgical History: Reports: None Social & Family History - Family History Family Medical History: No Pertinent Family History - Tobacco Use Tobacco Use Status *Q: Never Tobacco User - Caffeine Use Caffeine Use: Reports: None - Recreational Drug Use Recreational Drug Use: No ED ROS GENERAL - Review of Systems Review Of Systems: Comprehensive ROS is negative, except as noted in HPI. ED EXAM, GENERAL - Physical Exam Exam: See Below (see dictation) Course - Vital Signs Last Recorded V/S: Last Vital Signs Temp 98.0 F 03/24/21 16:58 Pulse 60 03/24/21 17:45 Resp 18 03/24/21 17:45 BP 131/83 03/24/21 17:45 Pulse Ox 98 03/24/21 17:45 - Orders/Labs/Meds Orders: Active Orders 24 hr Category Date Time Status Cardiac Monitoring [RC] . DIRECTED Care 03/24/21 14:05 Active EKG Documentation Completion [RC] STAT Care 03/24/21 14:05 Active EKG Documentation Completion [RC] STAT Care 03/24/21 17:17 Active Sodium Chloride 0.9% [Saline Flush] Med 03/24/21 14:05 Active 10 ml FLUSH ASDIRECTED PRN Sodium Chloride 0.9% [Saline Flush] Med 03/24/21 14:05 Active 2.5 ml FLUSH ASDIRECTED PRN Saline Lock Insert [OM.PC] Stat Oth 03/24/21 14:05 Ordered Medication Orders Sodium Chloride (Sodium Chloride 0.9% 10 Ml Syringe) 10 ml FLUSH ASDIRECTED PRN PRN Reason: Keep Vein Open Last Admin: 03/24/21 14:23 Dose: 10 ml Documented by: GARRY Sodium Chloride (Sodium Chloride 0.9% 2.5 Ml Syringe) 2.5 ml FLUSH ASDIRECTED PRN PRN Reason: Keep Vein Open Last Admin: 03/24/21 14:23 Dose: 2.5 ml Documented by: GARRY Labs: Laboratory Tests 03/24/21 03/24/21 03/24/21 Range/Units 14:03 14:03 14:53 WBC 5.93 (4.0-11.0) K/uL RBC 5.72 (4.50-5.90) M/uL Hgb 17.1 H (13.0-17.0) g/dL Hct 49.7 (38.0-50.0) % MCV 86.9 (80.0-98.0) fL MCH 29.9 (27.0-32.0) pg MCHC 34.4 (31.0-37.0) g/dL RDW Std Deviation 41.1 (28.0-62.0) fl RDW Coeff of Danna 13 (11.0-15.0) % Plt Count 136 L (150-400) K/uL MPV 10.90 (7.40-12.00) fL Neut % (Auto) 68.9 (48.0-80.0) % Lymph % (Auto) 22.1 (16.0-40.0) % [place] % (Auto) 8.1 (0.0-15.0) % Eos % (Auto) 0.7 (0.0-7.0) % Baso % (Auto) 0.2 (0.0-1.5) % Neut # (Auto) 4.1 (1.4-5.7) K/uL Lymph # (Auto) 1.3 (0.6-2.4) K/uL [place] # (Auto) 0.5 (0.0-0.8) K/uL Eos # (Auto) 0.0 (0.0-0.7) K/uL Baso # (Auto) 0.0 (0.0-0.1) K/uL Nucleated RBC % 0.0 /100WBC Nucleated RBCs # 0 K/uL Sodium 140 (136-148) mmol/L Potassium 4.2 (3.5-5.1) mmol/L Chloride 104 (98-107) mmol/L Carbon Dioxide 24.1 (21.0-32.0) mmol/L BUN 19 H (7.0-18.0) mg/dL Creatinine 1.2 (0.8-1.3) mg/dL Est Cr Clr Drug Dosing 80.19 mL/min Estimated GFR (MDRD) > 60.0 ml/min Glucose 100 (74-106) mg/dL Calcium 9.5 (8.5-10.1) mg/dL Magnesium (1.8-2.4) mg/dL Total Bilirubin 0.7 (0.2-1.0) mg/dL AST 21 (15-37) IU/L ALT 42 (14-63) IU/L Alkaline Phosphatase 75 (46-116) U/L Troponin I < 0.050 (0.000-0.056) ng/mL Total Protein 7.7 (6.4-8.2) g/dL Albumin 4.2 (3.4-5.0) g/dL Globulin 3.5 (2.6-4.0) g/dL Albumin/Globulin Ratio 1.2 (0.9-1.6) Urine Color YELLOW Urine Appearance CLEAR Urine pH 5.5 (5.0-8.0) Ur Specific [place] 1.025 (1.001-1.035) Urine Protein TRACE H (NEGATIVE) mg/dL Urine Glucose (UA) NEGATIVE (NEGATIVE) mg/dL Urine Ketones NEGATIVE (NEGATIVE) mg/dL Urine Occult Blood NEGATIVE (NEGATIVE) Urine Nitrite NEGATIVE (NEGATIVE) Urine Bilirubin NEGATIVE (NEGATIVE) Urine Urobilinogen 0.2 (<2.0) EU/dL Ur Leukocyte Esterase NEGATIVE (NEGATIVE) Urine RBC 0-1 (0-2/HPF) Urine WBC 0-1 (0-5/HPF) Ur Epithelial Cells RARE (NONE-FEW) Urine Bacteria RARE (NEGATIVE) 03/24/21 03/24/21 Range/Units 17:10 17:10 WBC (4.0-11.0) K/uL RBC (4.50-5.90) M/uL Hgb (13.0-17.0) g/dL Hct (38.0-50.0) % MCV (80.0-98.0) fL MCH (27.0-32.0) pg MCHC (31.0-37.0) g/dL RDW Std Deviation (28.0-62.0) fl RDW Coeff of [place]anna (11.0-15.0) % Plt Count (150-400) K/uL MPV (7.40-12.00) fL Neut % (Auto) (48.0-80.0) % Lymph % (Auto) (16.0-40.0) % [place] % (Auto) (0.0-15.0) % Eos % (Auto) (0.0-7.0) % Baso % (Auto) (0.0-1.5) % Neut # (Auto) (1.4-5.7) K/uL Lymph # (Auto) (0.6-2.4) K/uL [place] # (Auto) (0.0-0.8) K/uL Eos # (Auto) (0.0-0.7) K/uL Baso # (Auto) (0.0-0.1) K/uL Nucleated RBC % /100WBC Nucleated RBCs # K/uL Sodium (136-148) mmol/L Potassium (3.5-5.1) mmol/L Chloride (98-107) mmol/L Carbon Dioxide (21.0-32.0) mmol/L BUN (7.0-18.0) mg/dL Creatinine (0.8-1.3) mg/dL Est Cr Clr Drug Dosing mL/min Estimated GFR (MDRD) ml/min Glucose (74-106) mg/dL Calcium (8.5-10.1) mg/dL Magnesium 2.2 (1.8-2.4) mg/dL Total Bilirubin (0.2-1.0) mg/dL AST (15-37) IU/L ALT (14-63) IU/L Alkaline Phosphatase (46-116) U/L Troponin I < 0.050 (0.000-0.056) ng/mL Total Protein (6.4-8.2) g/dL Albumin (3.4-5.0) g/dL Globulin (2.6-4.0) g/dL Albumin/Globulin Ratio (0.9-1.6) Urine Color Urine Appearance Urine pH (5.0-8.0) Ur Specific [place] (1.001-1.035) Urine Protein (NEGATIVE) mg/dL Urine Glucose (UA) (NEGATIVE) mg/dL Urine Ketones (NEGATIVE) mg/dL Urine Occult Blood (NEGATIVE) Urine Nitrite (NEGATIVE) Urine Bilirubin (NEGATIVE) Urine Urobilinogen (<2.0) EU/dL Ur Leukocyte Esterase (NEGATIVE) Urine RBC (0-2/HPF) Urine WBC (0-5/HPF) Ur Epithelial Cells (NONE-FEW) Urine Bacteria (NEGATIVE) Meds: Medications Generic Name Dose Route Start Last Admin Trade Name Freq PRN Reason Stop Dose Admin Sodium Chloride 10 ml 03/24/21 14:03/24/21 14:23 Sodium Chloride 0.9% 10 Ml Syringe FLUSH 10 ml ASDIRECTED PRN Administration Keep Vein Open Sodium Chloride 2.5 ml 03/24/21 14:03/24/21 14:23 Sodium Chloride 0.9% 2.5 Ml Syringe FLUSH 2.5 ml ASDIRECTED PRN Administration Keep Vein Open Discontinued Medications Generic Name Dose Route Start Last Admin Trade Name Freq PRN Reason Stop Dose Admin Aspirin 243 mg 03/24/21 14:03/24/21 14:23 Aspirin 81 Mg Tab.Chew PO 03/24/21 14:06 243 mg ONETIME ONE Administration Departure - Departure Time of Disposition: 18:18 Disposition: Home, Self-Care 01 Clinical Impression: Atypical chest pain - Discharge Information Referrals: Padmini Wade NP [Primary Care Provider] - Forms: ED Department Discharge Additional Instructions: The following information is given to patients seen in the emergency department who are being discharged to home. This information is to outline your options for follow-up care. We provide all patients seen in our emergency department with a follow-up referral. The need for follow-up, as well as the timing and circumstances, are variable depending upon the specifics of your emergency department visit. If you don't have a primary care physician on staff, we will provide you with a referral. We always advise you to contact your personal physician following an emergency department visit to inform them of the circumstance of the visit and for follow-up with them and/or the need for any referrals to a consulting specialist. The emergency department will also refer you to a specialist when appropriate. This referral assures that you have the opportunity for follow-up care with a specialist. All of these measure are taken in an effort to provide you with optimal care, which includes your follow-up. Under all circumstances we always encourage you to contact your private physician who remains a resource for coordinating your care. When calling for follow-up care, please make the office aware that this follow-up is from your recent emergency room visit. If for any reason you are refused follow-up, please contact the [facility] Emergency Department at and asked to speak to the emergency department charge nurse. [facility] Primary [facility] [address] [place] [address] [place] [address] 1. You can alternate ibuprofen and Tylenol as directed for pain and discomfort. 2. Follow-up with your primary care provider and apprentice lineman third step as discussed. Return to the ED as needed and as discussed. Sepsis Event Note (ED) - Evaluation Sepsis Screening Result: No Definite Risk - Focused Exam Vital Signs: Vital Signs Temp Pulse Resp BP Pulse Ox 03/24/21 17:45 60 18 131/83 98 03/24/21 16:58 98.0 F 72 18 121/72 98 03/24/21 16:08 68 18 125/74 98 03/24/21 15:10 98.2 F 78 18 122/72 98 03/24/21 14:24 82 18 134/63 97 03/24/21 14:00 97.7 F 64 18 132/76 94 L - My Orders Last 24 Hours: My Active Orders 03/24/21 14:05 Cardiac Monitoring [RC] . DIRECTED EKG Documentation Completion [RC] STAT Sodium Chloride 0.9% [Saline Flush] 10 ml FLUSH ASDIRECTED PRN Sodium Chloride 0.9% [Saline Flush] 2.5 ml FLUSH ASDIRECTED PRN Saline Lock Insert [OM.PC] Stat 03/24/21 17:17 EKG Documentation Completion [RC] STAT - Assessment/Plan Last 24 Hours: My Active Orders 03/24/21 14:05 Cardiac Monitoring [RC] . DIRECTED EKG Documentation Completion [RC] STAT Sodium Chloride 0.9% [Saline Flush] 10 ml FLUSH ASDIRECTED PRN Sodium Chloride 0.9% [Saline Flush] 2.5 ml FLUSH ASDIRECTED PRN Saline Lock Insert [OM.PC] Stat 03/24/21 17:17 EKG Documentation Completion [RC] STAT
--- NOTE | 2021-03-24 17:26 | PCM.EKG ---
#2 Interpretation EKG Date: 03/24/21 Time: 17:20 Rhythm: NSR Rate (Beats/Min): 63 ST-T: Normal
[2021-03-24 20:20] VITALS: BP 112/68; PULSE 78
--- NOTE | 2021-03-25 07:08 | PCM.PRNOTE ---
- Free Text/Narrative Note: Device interrogation last interrogation 04/2020 DOS 03/24/2021 Company BS Model A219 EMBLEM MRI S-ICD intrinsic rhythm SR Battery life PREET 70% episode:AFib 1 episode in 01/2019, 2 episodes in 08/2019, unknown duration. No additional episodes Imp normal functioning sICD. Plan follow up device clinic as scheduled.
== END 2021-03-24 18:34 | disposition home or self-care (01) ==
LOC: MW.ED 13:50
DX: R07.89 Other chest pain (principal); I10 Essential (primary) hypertension; Z79.899 Other long term (current) drug therapy
CPT/HCPCS: 36415; 71045; 80053; 81001; 83735; 84484; 85025; 93005; 99285; A9270

== ENCOUNTER 2022-02-17 08:25 | Emergency (ER) | payer MEDICARE, MEDICAID ==
[2022-02-17] MEDS ORDERED: Sodium Chloride 0.9% 10 ML Syringe FLUSH PRN (08:54)
[2022-02-17] MEDS ORDERED: Sodium Chloride 0.9% 2.5 ML Syringe FLUSH PRN (08:54)
[2022-02-17 10:11] LABS: BLOOD UREA NITROGEN,BUN 19 mg/dL (7.0-18.0); CARBON DIOXIDE,CO2 23.3 mmol/L (21.0-32.0); CHLORIDE,CL 105 mmol/L (98-107); GLUCOSE RANDOM 110 mg/dL (74-106); SODIUM,NA 140 mmol/L (136-148)
[2022-02-17] MEDS ORDERED: Aspirin 81 MG Tab.Chew PO STA (10:29)
[2022-02-17] MEDS ORDERED: Clopidogrel 75 MG Tab PO ONE (10:30)
[2022-02-17] MEDS ORDERED: Heparin Sodium 5,000 Units/ML Vial IVPUSH ONE (10:46)
[2022-02-17] MEDS ORDERED: Heparin Sodium/0.45% NaCl 500 ML IV SCH (11:00)
[2022-02-17 12:51] VITALS: BP 137/84; PULSE 92
== END 2022-02-17 12:40 ==
LOC: MW.ED 08:25
DX: I21.4 Non-ST elevation (NSTEMI) myocardial infarction (principal); I10 Essential (primary) hypertension; Z20.822 Contact with and (suspected) exposure to COVID-19; Z79.82 Long term (current) use of aspirin
CPT/HCPCS: 36415; 71045; 80053; 83880; 84484; 85025; 85730; 93005; 99285; A9270; J1644; J3490; U0002

== ENCOUNTER 2024-05-26 07:38 | Emergency (ER) | payer MEDICARE, MEDICAID ==
[2024-05-26 08:18] LABS: BASOPHILS ABSOLUTE AUTO 0.02 K/uL (0.00-0.20); BASOPHILS PERCENT AUTO 0.3 % (0.0-1.0); EOSINOPHILS ABSOLUTE AUTO 0.06 K/uL (0.00-0.45); EOSINOPHILS PERCENT AUTO 0.8 % (0.0-6.0); HEMATOCRIT 50.4 % (42.0-52.0); HEMOGLOBIN 17.3 g/dL (14.0-18.0); IMMATURE GRAN ABSOLUTE AUTO 0.04 K/uL (0.00-0.05); IMMATURE GRAN PERCENT AUTO 0.5 % (0.0-0.4); LYMPHOCYTES ABSOLUTE AUTO 1.19 K/uL (1.00-4.80); LYMPHOCYTES PERCENT AUTO 14.9 % (24.0-44.0); MEAN CORPUSCULAR HEMOGLOBIN 29.4 pg (28.0-32.0); MEAN CORPUSCULAR HGB CONC 34.3 g/dL (32.0-36.0); MEAN CORPUSCULAR VOLUME 85.6 fL (83.0-99.0); MEAN PLATELET VOLUME 10.6 fL (9.4-12.4); MONOCYTES ABSOLUTE AUTO 0.66 K/uL (0.00-0.80); MONOCYTES PERCENT AUTO 8.3 % (0.0-8.0); NEUTROPHILS ABSOLUTE AUTO 6.01 K/uL (1.80-7.70); NEUTROPHILS PERCENT AUTO 75.2 % (41.0-71.0); PLATELET COUNT,PLT 155 K/uL (150-400); RED BLOOD CELL COUNT 5.89 M/uL (4.52-5.90); WHITE BLOOD CELL COUNT,WBC 7.98 K/uL (3.9-11.3)
[2024-05-26 08:31] LABS: INR 1.05 (0.86-1.11)
[2024-05-26 08:40] LABS: A/G RATIO 1.1 (0.9-1.6); BILIRUBIN TOTAL 0.9 mg/dL (0.2-1.0); CALCIUM 8.8 mg/dL (8.5-10.1); CARBON DIOXIDE,CO2 21.1 mmol/L (21.0-32.0); CREATININE 1.1 mg/dL (0.8-1.3); EST CRCL DRUG DOSING (CG) 84.8 mL/min; POTASSIUM,K 4.2 mmol/L (3.5-5.1); PROTEIN TOTAL,TP 7.7 g/dL (6.4-8.2)
[2024-05-26] MEDS: Iopamidol 755 MG/ML 500 ML Multipack Bottle IVPUSH STA (08:56)
[2024-05-26] MEDS: Sodium Chloride 0.9% 2.5 ML Syringe FLUSH PRN (10:08)
[2024-05-26] MEDS: Sodium Chloride 0.9% 10 ML Syringe FLUSH PRN (10:08)
[2024-05-26] MEDS: Amoxicillin/Clavulanate K 875-125 MG Tab PO ONE (10:08)
[2024-05-26 10:13] VITALS: BP 139/85; PULSE 94
== END 2024-05-26 10:12 | disposition home or self-care (01) ==
LOC: MW.ED 07:38
DX: K11.20 Sialoadenitis, unspecified (principal); I25.10 Atherosclerotic heart disease of native coronary artery without angina pectoris; I48.91 Unspecified atrial fibrillation; I10 Essential (primary) hypertension; Z79.82 Long term (current) use of aspirin; Z79.01 Long term (current) use of anticoagulants; Z79.899 Other long term (current) drug therapy; Z75.8 Other problems related to medical facilities and other health care
CPT/HCPCS: 36415; 70491; 80053; 85025; 85610; 99284; A9270; J3490; Q9967